=== PATIENT | male | born 1945 | race Caucasian/White ===

== ENCOUNTER 2017-03-25 08:27 | Day surgery (SDC) | payer MEDICARE, BC ==
[~2017-03-25 08:27] MED LIST: PROPOFOL 500 MG/50 ML EMU IV ONE
[2017-03-25 09:32] VITALS: RESP 16; TEMP 97.2
[2017-03-25 09:42] VITALS: PULSE 67
[2017-03-25 09:50] VITALS: BP 93/63; O2SAT 94
== END 2017-03-25 10:16 | disposition home or self-care (01) | DRG 392 ==
LOC: SURG 08:27
PROVIDERS: ATTEND Surgery
DX: R10.13 Epigastric pain (principal); K22.10 Ulcer of esophagus without bleeding; E11.9 Type 2 diabetes mellitus without complications; R68.81 Early satiety; K44.9 Diaphragmatic hernia without obstruction or gangrene
CPT/HCPCS: 82962; 99001; J2001; J2704

== ENCOUNTER 2018-07-05 07:22 | Day surgery (SDC) | payer MEDICARE, BC ==
[2018-07-05] MEDS ORDERED: PROPOFOL 500 MG/50 ML EMU IV ONE (07:30)
[2018-07-05] MEDS ORDERED: FENTANYL 100MCG/2ML SOL ONE (07:30)
[2018-07-05] MEDS ORDERED: LIDOCAINE HCL 1% MPF 30 SOL ONE (07:30)
[2018-07-05 09:30] VITALS: BP 111/77; PULSE 81; RESP 20; TEMP 97.7; O2SAT 97
== END 2018-07-05 10:05 | disposition home or self-care (01) | DRG 392 ==
LOC: SURG 07:22
PROVIDERS: ATTEND Surgery
DX: K21.9 Gastro-esophageal reflux disease without esophagitis (principal); E11.9 Type 2 diabetes mellitus without complications; K44.9 Diaphragmatic hernia without obstruction or gangrene; Z86.010 Personal history of colon polyps
CPT/HCPCS: 43235; G0105; 82962; J3010; J2001; J2704